=== PATIENT | female | born 1995 | race American Indian/Alaskan Native ===

== ENCOUNTER 2019-02-08 14:29 | Emergency (ER) | payer BC ==
[2019-02-08 15:23] VITALS: BP 145/79
--- NOTE | 2019-02-08 15:26 | Event Note ---
ED Screening Note ED Screening Note: chills that began last night +subjective fever +congestion headache body aches diarrhea no vomiting PMHx cholelithiasis no allergies to meds LNMP: end december, denies
--- NOTE | 2019-02-08 15:27 | Emergency Department Report ---
- General Chief Complaint: Chest Pain Stated Complaint: CHEST PAIN/MARY Time Seen by Provider: 02/08/19 15:21 Source: patient Mode of arrival: Ambulatory Limitations: No Limitations - History of Present Illness Initial Comments: pt is a 23 yo female who presents to the ED with c/o chills that began last night. she has associated subjective fever, congestion, headache, body aches, and diarrhea. she denies any vomiting,abd pain, CP, SOB, urinary symptoms. PMHx cholelithiasis. no allergies to meds. LNMP: end of december, denies - Related Data Previous Rx's Medication Instructions Recorded Last Taken Type Acetaminophen/Codeine [Tylenol #3] 1 tab PO Q6H PRN #15 tab 09/08/14 Unknown Rx Ibuprofen [Motrin 800 MG tab] 800 mg PO Q8HR #30 tablet 09/08/14 Unknown Rx Oseltamivir [Tamiflu] 75 mg PO BID 5 Days #10 cap 02/08/19 Unknown Rx Allergies Allergy/AdvReac Type Severity Reaction Status Date / Time No Known Allergies Allergy Unverified 09/08/14 12:02 ED Review of Systems ROS: Stated complaint: CHEST PAIN/MARY Other details as noted in HPI Comment: All other systems reviewed and negative ED Past Medical Hx - Past Medical History Previous Medical History?: Yes Hx Asthma: Yes - Surgical History Past Surgical History?: No - Social History Smoking Status: Never Smoker Substance Use Type: None - Medications Home Medications: Home Medications Medication Instructions Recorded Confirmed Last Taken Type Acetaminophen/Codeine [Tylenol #3] 1 tab PO Q6H PRN #15 tab 09/08/14 Unknown Rx Ibuprofen [Motrin 800 MG tab] 800 mg PO Q8HR #30 tablet 09/08/14 Unknown Rx Oseltamivir [Tamiflu] 75 mg PO BID 5 Days #10 cap 02/08/19 Unknown Rx ED Physical Exam - General Limitations: No Limitations General appearance: alert, in no apparent distress - Head Head exam: Present: atraumatic, normocephalic - Eye Eye exam: Present: normal appearance - ENT ENT exam: Present: mucous membranes moist, other (mucus congestion bilateral nares, no sinus TTP ) - Respiratory Respiratory exam: Present: normal lung sounds bilaterally. Absent: respiratory distress, wheezes, rales, rhonchi, stridor, chest wall tenderness, accessory muscle use, decreased breath sounds, prolonged expiratory - Cardiovascular Cardiovascular Exam: Present: regular rate, normal rhythm, normal heart sounds. Absent: systolic murmur, diastolic murmur, rubs, gallop - Neurological Exam Neurological exam: Present: alert, oriented X3 - Psychiatric Psychiatric exam: Present: normal affect, normal mood - Skin Skin exam: Present: warm, dry, intact ED Course Vital Signs 02/08/19 15:21 Temperature 98.2 F Pulse Rate 101 H Respiratory 20 Rate Blood Pressure 145/79 O2 Sat by Pulse 97 Oximetry ED Medical Decision Making - Medical Decision Making pt is a 23 yo female who presents to the ED with c/o chills that began last night. she has associated subjective fever, congestion, headache, body aches, and diarrhea. she denies any vomiting,abd pain, CP, SOB, urinary symptoms. PMHx cholelithiasis. no allergies to meds. LNMP: end december, denies . on exam: mucus congestion bilateral nares, no sinus TTP, otherwise normal. VSS, very mild tachycardia. pt has clinical signs and symptoms of influenza patient is within the 48-hour range will treat her with Tamiflu. advised pt to please take medication as prescribed. may take over the counter cough relief medication. increase your fluid intake over the next several days, get plenty of rest. may take tylenol or ibuprofen for fever or body aches. follow up with your primary care doctor in the next 2-3 days. return to the emergency room immediately for any new or worsening symptoms such as coughing up colored phlegm , increased fever, shortness of breath, chest pain, etc. - Differential Diagnosis URI, influenza, PNA, bronchitis, viral syndrome Critical care attestation.: If time is entered above; I have spent that time in minutes in the direct care of this critically ill patient, excluding procedure time. ED Disposition Clinical Impression: Influenza Disposition: DC-01 TO HOME OR SELFCARE Is pt being admited?: No Does the pt Need Aspirin: No Condition: Stable Instructions: Influenza (ED) Additional Instructions: please take medication as prescribed. may take over the counter cough relief medication. increase your fluid intake over the next several days, get plenty of rest. may take tylenol or ibuprofen for fever or body aches. follow up with your primary care doctor in the next 2-3 days. return to the emergency room immediately for any new or worsening symptoms such as coughing up colored phlegm, increased fever, shortness of breath, chest pain, etc. Prescriptions: Oseltamivir [Tamiflu] 75 mg PO BID 5 Days #10 cap Referrals: [facility] [Other] - 2-3 Days Forms: Work/School Release Form(ED) Time of Disposition: 15:52 Print Language: WOLOF
== END 2019-02-08 15:56 | disposition home or self-care (01) ==
LOC: ED 14:29
DX: J11.1 Influenza due to unidentified influenza virus with other respiratory manifestations (principal); J45.909 Unspecified asthma, uncomplicated; Z79.1 Long term (current) use of non-steroidal anti-inflammatories (NSAID); Z79.899 Other long term (current) drug therapy
CPT/HCPCS: 99281